=== PATIENT | male | born 1995 | race American Indian/Alaskan Native ===

== ENCOUNTER 2021-04-29 15:56 | Emergency (ER) | payer SELFPAY ==
[2021-04-29 16:44] VITALS: BP 138/80
--- NOTE | 2021-04-29 18:50 | Emergency Department Report ---
Vomiting/Diarrhea - HPI Chief Complaint: Abdominal Pain Stated Complaint: THROWING UP BLOOD Time Seen by Provider: 04/29/21 18:46 Duration: Today Severity: moderate Nausea/Vomiting Severity: Moderate Diarrhea Severity: None Pain Location: Epigastric Pain Severity: Mild Symptoms: Yes Able to Tolerate Fluids, Yes Recent Unusual Foods (ate at [employer] [place] before Sx started), No Bloody diarrhea, No Fever Other History: Patient is a 25-year-old F [place] male who ate some tacos with salsa prior to his vomiting. States the vomit was bright red in color. Patient believes he was throwing up blood. He already went to the outside urgent care and was given a prescription for Zofran but states that his nausea is still present. Patient has not vomited anymore. ED Review of Systems ROS: Stated complaint: THROWING UP BLOOD Other details as noted in HPI Comment: All other systems reviewed and negative ED Past Medical Hx - Medications Home Medications: Home Medications Medication Instructions Recorded Confirmed Last Taken Type Dicyclomine [Bentyl] 20 mg PO QID #10 tablet 04/29/21 Unknown Rx Famotidine [Pepcid] 20 mg PO BID #20 tablet 04/29/21 Unknown Rx Metoclopramide [Reglan] 10 mg PO TID PRN #12 tab 04/29/21 Unknown Rx Vomiting Diarrhea Exam - Exam General: Vital signs noted. No distress. Alert and acting appropriately. HEENT: Yes Moist Mucous Membranes, No Pharyngeal Erythema, No Pharyngeal Exudates, No Rhinorrhea, No Conjuctival Injection, No Frontal Tenderness, No Maxillary Tenderness Neck: No Adenopathy, No Rigidity Lungs: Yes Clear Lung Sounds, Yes Good Air Exchange, No Wheezes, No Stridor, No Cough, No Nasal Flaring, No Retractions, No Use of Accessory Muscles Heart exam: Regular: Yes, Murmur: No, Tachycardia: No Abdomen: Tenderness: Yes (mild epigastric), Peritoneal Signs: No, Distention: No, Hyperactive Bowel sounds: No Skin exam: Rash: No, Edema: No, Normal turgor: Yes Neurologic: Alert and oriented, no deficits. Musculoskeletal: Unremarkable. ED Course Vital Signs 04/29/21 16:42 Temperature 97.6 F Pulse Rate 72 Respiratory 14 Rate Blood Pressure 138/80 O2 Sat by Pulse 99 Oximetry ED Medical Decision Making - Medical Decision Making Patient likely is vomiting just red food coloring from the salsa packets used on his food. Is not endorsing any coffee-ground type emesis. Patient only with mild epigastric discomfort. Patient states he feels as though the Zofran given as a prescription was not helping. We'll start the patient on Reglan also start him on Pepcid and Bentyl the patient be stable for discharge. Critical care attestation.: If time is entered above; I have spent that time in minutes in the direct care of this critically ill patient, excluding procedure time. ED Disposition Clinical Impression: Acute gastritis Disposition: 01 HOME / SELF CARE / HOMELESS Is pt being admited?: No Does the pt Need Aspirin: No Condition: Stable Instructions: Gastritis, Adult, [id number] Time of Disposition: 18:49
== END 2021-04-30 07:06 | disposition home or self-care (01) ==
LOC: ED 15:56
DX: K29.70 Gastritis, unspecified, without bleeding (principal)
CPT/HCPCS: 99281